=== PATIENT | female | born 1995 ===

== ENCOUNTER → 2016-11-27 16:17 | Emergency (ER) | payer OTHER ==
[2016-11-27 15:20] LABS: INFLUENZA A NEG (NEG); INFLUENZA B NEG (NEG)
== END | disposition home or self-care (01) ==
LOC: CED 16:17
PROVIDERS: Emergency Medicine
DX: Z53.21 Procedure and treatment not carried out due to patient leaving prior to being seen by health care provider (principal)
CPT/HCPCS: 87651; 87804; 87880